=== PATIENT | female | born 1995 | race Two or more races ===

== ENCOUNTER 2025-01-16 16:07 | Emergency (ER) | payer OTHER ==
[~2025-01-16] VITALS: Ht 157.5 cm; Wt 80.0 kg
[2025-01-16 16:11] VITALS: O2SAT 98
[2025-01-16] MEDS: SODIUM CHLORIDE 0.9% 1,000 ML IV ONE (16:31)
[2025-01-16 16:41] LABS: BASOPHILS % 0.7 % (0.0-2.0); EOSINOPHILS % 0.2 % (0.0-5.0); HEMATOCRIT. 39.8 % (36.0-48.0); HEMOGLOBIN. 13.2 g/dL (12.0-16.0); LYMPHOCYTES % 30.5 % (20.0-50.0); MEAN CORPUSCULAR HEMOGLOBIN 27.2 pg (28.0-32.0); MEAN CORPUSCULAR HGB CONC 33.2 g/dL (31.0-37.0); MEAN CORPUSCULAR VOLUME 81.7 fL (81.0-99.0); MEAN PLATELET VOLUME 8.1 fl (7.4-10.4); MONOCYTES % 5.8 % (2.0-8.0); NEUTROPHILS % 62.8 % (40.0-76.0); PLATELET 486 x1000/uL (130-400); RED BLOOD CELL COUNT 4.86 mill/uL (4.2-5.4); RED CELL DISTRIBUTION WIDTH 15.8 % (11.6-14.6); WHITE BLOOD COUNT 12.8 x1000/uL (4.5-11.0)
[2025-01-16 16:53] LABS: CHLORIDE 99 mEq/L (98-107); SODIUM 138 mEq/L (136-145)
[2025-01-16 16:54] LABS: CARBON DIOXIDE 26 mEq/L (21-32)
[2025-01-16 16:55] LABS: CALCIUM 9.7 mg/dL (8.7-10.4)
[2025-01-16 16:59] LABS: CREATININE 0.7 mg/dL (0.6-1.0); GLUCOSE 117 mg/dL (70-105); UREA NITROGEN BLOOD 8 mg/dL (9-23)
[2025-01-16 17:04] LABS: THYROID STIMULATING HORMONE 1.49 uIU/mL (0.55-4.78)
[2025-01-16 17:07] LABS: ETHANOL BLOOD < 10 mg/dL (<10); TROPONIN I HIGH SENSITIVITY < 4 ng/L (3.0-34)
[2025-01-16 17:16] LABS: HCG SCREEN NEGATIVE
[2025-01-16 18:07] VITALS: TEMP 36.7
[2025-01-16 18:16] LABS: CLARITY URINE CLEAR (CLEAR); COLOR URINE YELLOW (YELLOW); GLUCOSE URINE NEGATIVE (NEGATIVE); KETONES URINE NEGATIVE (NEGATIVE); LEUKOCYTE ESTERASE URINE NEGATIVE (NEGATIVE); NITRITE URINE NEGATIVE (NEGATIVE); OCCULT BLOOD URINE NEGATIVE (NEGATIVE); PROTEIN URINE NEGATIVE (NEGATIVE); SPECIFIC GRAVITY URINE 1.006 (1.005-1.030); UROBILINOGEN URINE 0.2 E.U./dL (0.2-1.0)
[2025-01-16 18:24] LABS: *AMPHETAMINES SCREEN URINE NEGATIVE (NEGATIVE)
[2025-01-16 18:25] LABS: *BARBITURATES SCREEN URINE NEGATIVE (NEGATIVE); *BENZODIAZEPINES SCREEN URINE NEGATIVE (NEGATIVE); *COCAINE SCREEN URINE NEGATIVE (NEGATIVE); CANNABINOID URINE SCREEN NEGATIVE (NEGATIVE); ECSTASY MDMA SCREEN URINE NEGATIVE (NEGATIVE); METHADONE URINE SCREEN NEGATIVE (NEGATIVE); OPIATES URINE SCREEN NEGATIVE (NEGATIVE); PHENCYCLIDINE URINE SCREEN NEGATIVE (NEGATIVE)
[2025-01-16] MEDS: POTASSIUM CHLORIDE 20MEQ/PACKET PO ONE (19:59)
[2025-01-16] MEDS: LORAZEPAM 1MG TABLET PO ONE (19:59)
[2025-01-16 20:06] VITALS: BP 119/88; PULSE 102; RESP 16; O2SAT 98
== END 2025-01-16 20:11 | disposition home or self-care (01) ==
LOC: ER 16:07
DX: R00.2 Palpitations (principal); E78.00 Pure hypercholesterolemia, unspecified; I10 Essential (primary) hypertension; Z79.899 Other long term (current) drug therapy
CPT/HCPCS: 80305; 80048; 81003; 80320; 84703; 83880; 84443; 85025; 85379; 84484; 36415; 71045; 99284; J7030; Z7610 ×2; A4606; G0480